=== PATIENT | male | born 1980 | race Caucasian/White ===

== ENCOUNTER 2020-02-26 23:02 | Emergency (ER) | payer OTHER ==
[~2020-02-26] VITALS: Ht 175.2 cm; Wt 86.1 kg
[2020-02-26 23:02] VITALS: BP 129/71
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
--- NOTE | 2020-02-26 23:15 | NUR ---
Dr. Nazario offered an X-Ray for the patients hand and patient declined. When doctor went to discharge patient, patient was upset that his hand was not getting xrayed. Patient is offered an xray again.
--- NOTE | 2020-02-26 23:15 | NUR ---
Patient refused tetanus vaccine and x-ray at this time.
--- OUTSIDE RECORDS SUMMARY | 2020-02-26 23:15 | XMS REPORT | Continuity of Care Document ---
Author Organization Unknown Address Unknown Phone Unavailable Allergies Active Description Code Type Severity Reaction Onset Reported/Identified Relationship to Patient Clinical Status Yes ALLERGIES UNKNOWN DUE TO PATIENT INCAPAC ITATION UNKNOWN UNKNOWN 07/08 Medications Medication Packaging Start Date St op Date Route Dosage Sig NALOXONE VIAL INJ 0.4 MG/CC (NARCAN 1CC AL) MG 03/13/2019 03/13/2019 PRN ONCE NORMAL SALINE 1000CC IV BAG INJ 0.9 % (NS 1000CC IV BAG) ml 03/13/2019 03/13/2019 ONCE&0800 Problems Date Dx Coded Attending Type Code Diagnosis Diagnosed By 03/13/2019 Louis Bhakta 276.51 DEHYDRATION 03/13/2019 Louis Bhakta 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 Results Test Result Range CULTURE, THROAT - 11/09/18 16:59 CULTURE, THROAT SEE NOTE NRG Cardiac Panel - 03/13/19 07:00 CK 540 U/L 26-174 CK-MB 4.2 ng/ml 0.0-9.2 Myoglobin 223.8 ng/ml 1.6-154.9 Troponin <0.020 ng/mL 0.0-0.4 Arterial Blood Gas - 03/13/19 07:05 Base -11.00 mmol/L 1.80-4.20 HCO3 13 mmol/L 20-31 O2 Sat 98 RM AIR % 95-100 pCO2 19 mm/Hg 35-45 pH 7.45 7.35-7.45 PO2 91 mm/Hg 80-95 EKG - 03/13/19 07:21 EKG Complete Urinalysis - 03/13/19 07:42 Icotest N/A Negative Urine Crystals Calcium Oxalate Urine Volume Urine Volume Sufficient (10mL) Urine Yeast No Yeast present Urine-Appearance Clear Clear Urine-Bacteria Negative Urine-Bilirubin 1+ Negative Urine-Blood Trace-intact Negative Urine-Color Yellow Colorless-Lt. [place] ow Urine-Epithelial Cells 0-5/HPF Urine-Glucose Negative Negative Urine-Ketones Trace Negative Urine-Leukocytes Negative Negative Urine-Mucus 1+ Urine-Nitrite Negative Negative Urine-Other Urine Saved if Culture Need ed (48hrs from time of collection) Moderate Spermazoa Urine-pH 5.5 5-8.5 Urine-Protein 2+ Negative Urine-RBC Rare/HPF Urine-Specific [place] >=1.030 1.000-1 .030 Urine-WBC Negative Urobilinogen 0.2 E.U./dL 0.2-1.0 BMP - 03/13/19 11:58 Anion Gap 12 6-14 BUN 24 mg/dL 5-25 Calcium 8.4 mg/dL 8.3-10.4 Chloride 110 mmol/L 95-114 CO2 21 mEq/L 22-33 Creat 1.22 mg/dL 0.50-1.50 eGFR 67 mL/min/1.73m2 >59 Glucose 90 mg/dL 70-110 Osmo 291 280-295 Potassium 4.1 mmol/L 3.5-5.3 Sodium 139 mmol/L 134-148 Lactic Acid - 03/13/19 11:58 Lactic Acid 6.3 mg/dL 4.5-19.8 Encounters ACCT No. Visit Date/Time Discharge Status Pt. Type Provider Facility Loc./Unit Complaint [id number] 01/19/2019 09:00:00 01/19/2019 23:59:5 9 CLS Outpatient IAN MIRANDA L[facility] [id number] 11/09/2018 16:30:00 Document Registration [id number] 03/13/2019 07:13:00 03/13/2019 12:45: 00 DIS Outpatient [facility] [id number] 03/13/2019 08:01:42 Document Registration
[2020-02-26] MEDS: TETANUS,DIPTH,PERTUSS P/F (BOOSTRIX) 0.5 ML VIAL IM ONE ×2 (23:20→23:22)
== END 2020-02-26 23:23 ==
LOC: ER FS 23:05
DX: F15.129 Other stimulant abuse with intoxication, unspecified (principal); S60.812A Abrasion of left wrist, initial encounter; Z88.8 Allergy status to other drugs, medicaments and biological substances; X58.XXXA Exposure to other specified factors, initial encounter
CPT/HCPCS: 90715; 99283

== ENCOUNTER 2023-01-04 16:28 | Emergency (ER) | payer MEDICAID ==
[~2023-01-04] VITALS: Ht 172 cm; Wt 114.0 kg
[2023-01-04 16:35] VITALS: BP 116/81
[2023-01-04] MEDS ORDERED: AUGMENTIN 875 MG TAB (AMOXICILLIN/CLAVULANATE) PO STA (16:39)
[2023-01-04] MEDS ORDERED: AMOX1TAB12 PO (16:44)
--- NOTE | 2023-01-04 16:44 | ED General ---
General Chief Complaint: Bite-Animal/Human/Insect Stated Complaint: DOG BITE L SIDE HIP Source of Information: Patient Exam Limitations: No Limitations History of Present Illness Date Seen by Provider: January 04, 2023 Time Seen by Provider: 16:29 Initial Comments 42-year-old male with no pertinent past medical history coming in after he was bit by a dog. He is the consulting technical manager, was at the side of the driveway, and a dog ran up and bit his left lower abdomen. He does not believe the teeth actually went through the chart, but he does have bite olivas on his abdomen. He states it was fairly superficial. This occurred roughly a couple hours prior to arrival. He already has a police report, and this is a known dog and they are following up with this. Last tetanus he believes was more than 10 years ago. Otherwise denying any other acute complaints Allergies and Home Medications Allergies Coded Allergies: aspirin (Verified Allergy, Unknown, 02/26/20) Patient Home Medication List Home Medication List Reviewed: Yes Review of Systems Review of Systems Constitutional: No fever EENTM: no symptoms reported Respiratory: no symptoms reported Cardiovascular: no symptoms reported Gastrointestinal: no symptoms reported Genitourinary: no symptoms reported Musculoskeletal: see HPI Psychiatric/Neurological: No Symptoms Reported Past Xtqnypg-Frhwdr-Iaurvc Hx Patient Social History Tobacco Use?: Yes Tobacco type used: Cigarettes Use of E-Cig and/or Vaping dev: No Substance use?: No Alcohol Use?: No Past Medical History Surgeries: No Respiratory: No Cardiac: No Neurological: No Genitourinary: No Gastrointestinal: No Musculoskeletal: No Endocrine: No HEENT: No Cancer: No Psychosocial: No Integumentary: No Physical Exam Vital Signs Capillary Refill : Height, Weight, BMI Height: '" Weight: lbs. oz. kg; 28.00 BMI Method: General Appearance: No Apparent Distress, WD/WN Eyes: Bilateral Eye Normal Inspection HEENT: PERRL/EOMI, Normal ENT Inspection, Pharynx Normal Neck: Full Range of Motion, Normal Inspection, Non Tender, Supple Respiratory: Chest Non Tender, Lungs Clear, Normal Breath Sounds, No Accessory Muscle Use, No Respiratory Distress Cardiovascular: Regular Rate, Rhythm, No Edema, Normal Peripheral Pulses Skin: Other (Small area of bite olivas to his left lateral abdomen on the lower part, they are fairly superficial, there is some soft tissue bruising around, they are hemostatic) Progress/Results/Core Measures Suspected Sepsis SIRS Temperature: Pulse: Respiratory Rate: Blood Pressure / Mean: Results/Orders Vital Signs/I&O Capillary Refill : Progress Note : Progress Note 42-year-old male with above history coming in after a dog bite. ABCs were intact and vitals were stable on presentation. Physical exam with no obvious dog bite to his left lateral abdomen. It is superficial and hemostatic. It was cleaned with saline and a sterile dressing was placed on it. There is nothing to really stitch out for repair at this point, the tissue is mostly macerated and bruised. He received an updated tetanus vaccine today, Augmentin, and ibuprofen in the ER. The dog is a known dog, and the police are following up regarding rabies. We will hold off on vaccination and rabies immunoglobulin for now. I will send a prescription for Augmentin to the pharmacy. I believe he is otherwise stable for discharge with outpatient follow-up. He was sent home with strict return precautions Departure Impression Primary Impression: Dog bite Qualified Codes: W54.0XXA - Bitten by dog, initial encounter Disposition: HOME, SELF-CARE Condition: Stable Departure-Patient Inst. Decision time for Depature: 16:50 Referrals: NO,LOCAL PHYSICIAN (PCP/Family) Primary Care Physician Patient Instructions: Animal Bites (DC) Add. Discharge Instructions: You will be on Augmentin twice a day for the next week. This may cause some diarrhea or nausea. Take ibuprofen or Tylenol as needed for pain regarding the bite. Follow-up with the police and health department if you need for rabies, although if the dog is still alive in 10 days then it almost surely does not hav e rabies. If you notice any signs of infection over the next several days, please follow back up with your regular doctor soon as possible. Scripts Amoxicillin/Potassium Clav (Amox Tr-K Clv 875-125 mg Tab) 875 Mg-125 Mg Tablet 1 EACH PO BID for 7 Days, #14 TAB Prov: DAVID BALL MD 01/04/23 Work/School Note: Work Release Form Date Seen in the Emergency Department: January 04, 2023 Return to Work: January 05, 2023 Restrictions: No Restrictions DAVID BALL MD January 04, 2023 16:44
[2023-01-04] MEDS ORDERED: IBUPROFEN 600 MG (MOTRIN) TAB PO ONE (16:45)
[2023-01-04] MEDS ORDERED: TETANUS,DIPTH,PERTUSS P/F (BOOSTRIX) 0.5 ML VIAL IM ONE (16:45)
== END 2023-01-04 16:51 | disposition home or self-care (01) ==
LOC: EDUNIT# 16:28 → ER FS 16:30
DX: S30.871A Other superficial bite of abdominal wall, initial encounter (principal); F17.210 Nicotine dependence, cigarettes, uncomplicated; Z23 Encounter for immunization; W54.0XXA Bitten by dog, initial encounter; Y92.89 Other specified places as the place of occurrence of the external cause
CPT/HCPCS: 90715; 99284